=== PATIENT | male | born 1965 | race Caucasian/White ===

== ENCOUNTER 2020-05-27 08:56 | Outpatient (CLI) | payer OTHER, SELFPAY ==
--- NOTE | 2020-05-27 | EST_ITS ---
Patient Info Name: Sharath Wolf Age: 55 years : 1965 Gender: Male Ht: 69 in Wt: 187 lbs BSA: 2.05 m2 Exam Date: 05/27/2020 10:11 AM Exam Location: [facility] Patient Status: Outpatient Admit Date: 05/27/2020 Staff Ordering Physician: Familia Garay DO Bottling Attendant: Christiano Madrigal RDCS, RT Attending Provider: LEONARD BILLINGSLEY Referring Physician: Tanisha GRISSOM; Exercise Technologist: Christiano Madrigal RDCS, RT Exercise Physician: Leonard Billingsley DO Exam Type: CA stress echo Study Info Indications I25.9 - Chronic ischemic heart disease, unspecified Treadmill exercise stress echocardiogram is performed. Summary 1. 1. Negative Stefan exercise stress test for ischemic ST changes by ECG criteria. 2. 2. Reduced functional capacity, achieving 8 METs of workload. 3. 3. Hypertensive response to exercise. 4. 4. Appropriate HR response to exercise. 5. 5. Appropriate HR recovery at 1 minute post exercise. 6. 6. Frequent PVC's. 7. 7. Abnormal stress echocardiogram with lateral wall remaining hypokinetic suggesting stenosis in Left circumflex coronary artery. 8. 8. Dr. Garay was notified of the above. Stress Echo Findings Left Ventricle Lateral wall is hypokinetic and does not increase in thickening with systole. Remaining wall segments do increase in LV thickening with systole. No LV dilatation. Left Ventricle Preserved LV systolic function. Lateral wall is hypokinetic. EF 50-55%. Protocol: Stefan Stress ECG Details Stage: REST Duration (min): 1 min : 1 sec Speed (mph): 0.0 Grade (%): 0 HR (bpm): 72 SBP (mmHg): 139 DBP (mmHg): 97 METS: --- Stage: REST Duration (min): 10 min : 8 sec Speed (mph): 0.0 Grade (%): 0 HR (bpm): 81 SBP (mmHg): 139 DBP (mmHg): 97 METS: --- Stage: STAGE 1 Duration (min): 1 min : 0 sec Speed (mph): 1.7 Grade (%): 10 HR (bpm): 107 SBP (mmHg): 139 DBP (mmHg): 97 METS: --- Stage: STAGE 1 Duration (min): 2 min : 0 sec Speed (mph): 1.7 Grade (%): 10 HR (bpm): 115 SBP (mmHg): 139 DBP (mmHg): 97 METS: --- Stage: STAGE 1 Duration (min): 3 min : 0 sec Speed (mph): 1.7 Grade (%): 10 HR (bpm): 124 SBP (mmHg): 159 DBP (mmHg): 96 METS: --- Stage: STAGE 2 Duration (min): 1 min : 0 sec Speed (mph): 2.5 Grade (%): 12 HR (bpm): 142 SBP (mmHg): 159 DBP (mmHg): 96 METS: --- Stage: STAGE 2 Duration (min): 2 min : 0 sec Speed (mph): 2.5 Grade (%): 12 HR (bpm): 140 SBP (mmHg): 204 DBP (mmHg): 91 METS: --- Stage: STAGE 2 Duration (min): 3 min : 0 sec Speed (mph): 2.5 Grade (%): 12 HR (bpm): 148 SBP (mmHg): 204 DBP (mmHg): 91 METS: --- Stage: STAGE 3 Duration (min): 1 min : 0 sec Speed (mph): 0.0 Grade (%): 0 HR (bpm): 145 SBP (mmHg): 204 DBP (mmHg): 91 METS: --- Stage: STAGE 3 Duration (min): 2 min : 0 sec Speed (mph): 0.0 Grade (%): 0 HR (bpm): 107 SBP (mmH
== END 2020-05-27 08:57 | disposition home or self-care (01) ==
LOC: ANHCARD 08:58
PROVIDERS: PCP Internal Medicine; Visit Provider Internal Medicine
DX: Z13.6 Encounter for screening for cardiovascular disorders (principal); Z82.49 Family history of ischemic heart disease and other diseases of the circulatory system; R03.0 Elevated blood-pressure reading, without diagnosis of hypertension
CPT/HCPCS: 93351